=== PATIENT | female | born 1975 | race Caucasian/White ===

== ENCOUNTER 2021-11-26 11:11 | Day surgery (SDC) | payer BC, SELFPAY ==
[2021-11-26] VITALS (11 sets, daily range): BP systolic 121–149; BP diastolic 69–93; PULSE 70–112; RESP 16–22; TEMP 36.1–37.1; O2SAT 94–100; BMI 33.6
--- NOTE | 2021-11-26 11:30 | CT_ITS ---
WS: [id number] CT ABDOMEN AND PELVIS WITH CONTRAST HISTORY: RIGHT lower quadrant pain. TECHNIQUE: Imaging performed of the abdomen and pelvis with IV contrast. Single phase imaging of the abdomen. Coronal and sagittal reformats are submitted. All CT scans at [facility] use at [facility] one of these dose optimization techniques: automated exposure control; mA and/or kV adjustment per patient size (includes targeted exams where dose is matched to clinical indication); or iterative re construction. IV CONTRAST: Omnipaque 300; 95 mL IV. Oral contrast: No DLP: 1892.9 mGy.cm COMPARISON: None available. Lower thorax: Curvilinear atelectasis or scar posterior RIGHT lower lobe. Heart is normal size. Small hiatal hernia. Liver/biliary system: Normal size with no intrahepatic dilatation. Normal portal vein and SMV. Gallbladder: Mildly contracted gallbladder. No adjacent inflammation. Normal bile ducts. Pancreas: Normal size pancreas and pancreatic duct. No adjacent inflammation. Spleen: Normal size spleen. No mass or infarct. Adrenal glands: Normal. Right kidney: Normal. Left kidney: Normal. Aorta: Normal. Lymphadenopathy: There are a few small reactive lymph nodes in the RIGHT lower quadrant. Free fluid: None. GI tract: There is significant enlargement and enhancement of the appendix which measures 8.7 mm. The re is significant periappendiceal inflammation. There is a small amount of fluid just medial to the a bnormal appendix. The fluid collection measures 13 x 19 mm. Abdominal wall: Unremarkable abdominal wall. No hernia. Pelvis: No free fluid or adenopathy within the pelvis. Uterus midline and normal size. No adnexal mas s. Bones: Unremarkable. CT/CT abdomen pelvis w con* [id number] IMPRESSION: 1. Acute appendicitis and highly suspicious for rupture or developing adjacent abscess. Medial to the appendix is a 13 x 19 mm fluid collection. 2. No free fluid. Moderate amount of periappendiceal inflammation with a few s mall lymph nodes. Notified Magen Gomez MD at 11/26/2021 12:58 PM. Not available for consult.
--- NOTE | 2021-11-26 11:39 | W.ED.GENADLT ---
HPI - General Adult General: Chief complaint: Abdominal Pain Stated complaint: ABD Pain Time Seen by Provider: 11/26/21 11:29 History of Present Illness: Patient is a 46-year-old female with no significant past medical history presenting to the emergency room for evaluation of right lower quadrant abdominal pain since yesterday morning. Patient has associated nausea vomiting subjective fever and chills at home. Patient denies any urinary symptoms. No prior history of renal colic. No prior abdominal surgery including appendectomy. Patient has no other complaints of cough, runny nose, sore throat, chest pain, shortness of breath, for new vaginal discharge, or vaginal bleeding. She is currently sexually active with one partner. She denies any diarrhea, melena or hematochezia. Onset:2 days ago Duration:2 days Location:RLQ abd pain Severity: moderate Associated symptoms: Reports nausea and vomiting; Deny chest pain, dyspnea, rash or palpitations Review of Systems Const: Denies: fever(s) or chills Eyes: Denies: change in vision ENMT: Denies: mouth pain Card: Denies: chest pain or palpitations Resp: Denies: dyspnea or non-productive cough GI: Reports: abdominal pain (+RLQ abd pain), nausea and vomiting; Denies: diarrhea : Denies: dysuria Musc: Denies: extremity pain Skin/Breast: Denies: rash or new lesions Neuro: Denies: weakness in extremities Psych: Reports: other (Normal mood) Fab/Lymph: Denies: easy bruising PFSH ED PFSH: Medical History Depression Surgical History H/O ventral hernia repair Social History Smoking and tobacco status: never smoked Alcohol intake: never Substance/Drug Use: never Physical Exam Const: COMMON NORMALS: alert HENMT: COMMON NORMALS: atraumatic HEAD & SCALP: atraumatic MOUTH: moist mucous membranes not abnormal Eye: COMMON NORMALS: EOMs intact bilaterally and conjunctivae normal CONJUNCTIVA: Yes conjunctivae normal Neck/C-Spine: COMMON NORMALS: full ROM and supple Resp: COMMON NORMALS: normal respiratory effort and clear to auscultation bilaterally AUSCULTATION: clear to auscultation bilaterally Cardio: COMMON NORMALS: regular rate RATE: regular rate GI: COMMON NORMALS: Soft to palpation PALPATION: Yes Soft to palpation OTHER: + moderateRLQ focal TTP. NO guarding rebound, guarding, rigidity. No CVA tenderness to percussion. Neg Daly/Neg McBurney's point tenderness, no suprabupic tenderness to palpation. Extremity: COMMON NORMALS: full ROM Neuro: SENSORIUM/ORIENTATION: Yes alert MOTOR EXAM: No Abnormal motor strength present and Other motor observations present (no focal motor deficits) Psych: COMMON NORMALS: speech normal SPEECH: Yes normal speech MOOD & AFFECT: Yes euthymic mood Course Vital Signs: Vital signs: Vital Signs Temperature 98.3 F 11/26/21 11:25 Pulse Rate 94 11/26/21 13:17 Respiratory Rate 16 11/26/21 13:17 Blood Pressure 126/69 11/26/21 13:17 Pulse Oximetry 98 11/26/21 13:17 MDM - General Adult Medical Decision Making 46-year-old female presents emergency room with 2 days of right lower quadrant dull pain with nausea vomiting subjective fever chills. On arrival, patient is afebrile. Patient is focally tender in the right lower quadrant. No guarding no rebound tenderness. Work-up: CBC, CMP, lipase, beta hCG, UA, CT abdomen pelvis Intervention: IVF, morphine, Zofran Patient was found to have appendicitis on CT scan with abscess. Patient received cefazolin and Zosyn. Dr. Justin is aware patient. Pain is well controlled. Disposition: OR Lab Data : 11/26/21 12:58 11/26/21 12:58 Radiology Impressions Abdomen/Pelvis CT 11/26/21 11:30 IMPRESSION: 1. Acute appendicitis and highly suspicious for rupture or developing adjacent abscess. Medial to the appendix is a 13 x 19 mm fluid collection. 2. No free fluid. Moderate amount of periappendiceal inflammation with a few small lymph nodes. Notified Magen Gomez MD at 11/26/2021 12:58 PM. Not available for consult. Laboratory Results WBC 8.7 10^3/uL (4.0-10.0) 11/26/21 12:58 RBC 4.60 10^6/uL (4.1-5.3) 11/26/21 12:58 Hgb 13.3 g/dL (11.5-15.3) 11/26/21 12:58 Hct 40.6 % (37.0-47.0) 11/26/21 12:58 MCV 88.3 fl (81-99) 11/26/21 12:58 MCH 28.9 pg (28.0-34.0) 11/26/21 12:58 MCHC 32.8 g/dL (30.0-36.0) 11/26/21 12:58 RDW 12.9 % (12.1-15.1) 11/26/21 12:58 Plt Count 224 10^3/cmm (130-400) 11/26/21 12:58 MPV 9.8 fL (7.4-10.4) 11/26/21 12:58 Neut % (Auto) 75.7 % 11/26/21 12:58 Lymph % (Auto) 14.8 % 11/26/21 12:58 [place] % (Auto) 8.0 % 11/26/21 12:58 Eos % (Auto) 1.0 % 11/26/21 12:58 Baso % (Auto) 0.2 % 11/26/21 12:58 Neut # (Auto) 6.56 10^3/uL (1.8-7.7) 11/26/21 12:58 Lymph # (Auto) 1.3 10^3/uL (0.8-4.8) 11/26/21 12:58 [place] # (Auto) 0.7 10^3/uL (0.2-0.9) 11/26/21 12:58 Eos # (Auto) 0.1 10^3/uL (0.0-0.8) 11/26/21 12:58 Baso # (Auto) 0.0 10^3/uL (0.0-0.1) 11/26/21 12:58 Nucleated RBC % (auto) 0 % 11/26/21 12:58 Nucleated RBCs # 0.0 /100WBC 11/26/21 12:58 Sodium 137 mmol/L (136-145) 11/26/21 12:58 Potassium 3.7 mmol/L (3.5-5.1) 11/26/21 12:58 Chloride 102 mmol/L (98-107) 11/26/21 12:58 Carbon Dioxide 24 mmol/L (22-29) 11/26/21 12:58 Anion Gap 14.7 (5-19) 11/26/21 12:58 BUN 8 mg/dL (6-20) 11/26/21 12:58 Creatinine 0.6 mg/dL (0.5-0.9) 11/26/21 12:58 GFR Calculation 107.6 mL/min (90-130) 11/26/21 12:58 Glucose 104 mg/dL (65-115) 11/26/21 12:58 Calculated Osmolality 283 mOsm/kg (285-295) L 11/26/21 12:58 Calcium 8.5 mg/dL (8.5-10.5) 11/26/21 12:58 Total Bilirubin 0.9 mg/dL (0.15-1.2) 11/26/21 12:58 AST 10 U/L (0-32) 11/26/21 12:58 ALT 15 U/L (0-33) 11/26/21 12:58 Alkaline Phosphatase 79 IU/L (35-105) 11/26/21 12:58 Total Protein 6.6 g/dL (6.6-8.7) 11/26/21 12:58 Albumin 4.1 g/dL (3.5-5.2) 11/26/21 12:58 Globulin 2.5 g/dL (1.3-4.6) 11/26/21 12:58 Lipase 94 U/L (13-60) H 11/26/21 12:58 HCG, Qual Negative (Negative) 11/26/21 12:58 Urine Color Yellow (Yellow) 11/26/21 11:34 Urine Appearance Hazy (CLEAR) A 11/26/21 11:34 Urine pH 5 (5-7) 11/26/21 11:34 Ur Specific [place]ie 1.015 (1.005-1.030) 11/26/21 11:34 Urine Protein Neg (Negative) 11/26/21 11:34 Urine Glucose (UA) Norm (Normal) 11/26/21 11:34 Urine Ketones 1+ (Negative) H 11/26/21 11:34 Urine Blood 3+ (Negative) H 11/26/21 11:34 Urine Nitrate Negative (Negative) 11/26/21 11:34 Urine Bilirubin Neg (Negative) 11/26/21 11:34 Urine Urobilinogen 1 mg/dL (Negative) H 11/26/21 11:34 Ur Leukocyte Esterase Negative (Negative) 11/26/21 11:34 Urine RBC 0-4 /hpf (0-2) H 11/26/21 11:34 Urine WBC 5-10 /hpf (0-5) H 11/26/21 11:34 Ur Squamous Epith Cells 25-40 /hpf (0-5) H 11/26/21 11:34 Amorphous Sediment Not Reportable 11/26/21 11:34 Urine Bacteria 2+ /hpf (NONE) H 11/26/21 11:34 Imaging Data Other Imaging: Radiologist's impression: [facility] [address] [address] Scan Report Signed Patient: Annita Harris Unit #: [id number] : 1975 Age/Sex: 46 / F ADM Date: 11/26/21 Loc: ER Room/Bed: Attending Dr: Ordering Provider/Ordering MD: Magen Gomez MD Date of Service: 11/26/21 Procedure(s): CT abdomen pelvis w con* [id number] Accession Number(s): [id number] Report Number: [id number] WS: [id number] CT ABDOMEN AND PELVIS WITH CONTRAST HISTORY: RIGHT lower quadrant pain. TECHNIQUE: Imaging performed of the abdomen and pelvis with IV contrast.? Single phase imaging of the abdomen. Coronal and sagittal reformats are submitted.? [facility] use at least one of these dose optimization techniques: automated exposure control; mA and/or kV adjustment per patient size (includes targeted exams where dose is matched to clinical indication); or iterative reconstruction. IV CONTRAST: Omnipaque 300; 95 mL IV. Oral contrast: No DLP: 1892.9 mGy.cm COMPARISON: None available. Lower thorax: Curvilinear atelectasis or scar posterior RIGHT lower lobe. Heart is normal size. Small hiatal hernia. Liver/biliary system: Normal size with no intrahepatic dilatation. Normal portal vein and SMV. Gallbladder: Mildly contracted gallbladder. No adjacent inflammation. Normal bile ducts.? Pancreas: Normal size pancreas and pancreatic duct. No adjacent inflammation. Spleen: Normal size spleen. No mass or infarct. Adrenal glands: Normal. Right kidney: Normal. Left kidney: Normal. Aorta: Normal. Lymphadenopathy: There are a few small reactive lymph nodes in the RIGHT lower quadrant. Free fluid: None. GI tract: There is significant enlargement and enhancement of the appendix which measures 8.7 mm. There is significant periappendiceal inflammation. There is a small amount of fluid just medial to the abnormal appendix. The fluid collection measures 13 x 19 mm. Abdominal wall: Unremarkable abdominal wall. No hernia. Pelvis: No free fluid or adenopathy within the pelvis. Uterus midline and normal size. No adnexal mass. Bones: Unremarkable. CT/CT abdomen pelvis w con* [id number] IMPRESSION: ? 1.? Acute appendicitis and highly suspicious for rupture or developing adjacent abscess. Medial to the appendix is a 13 x 19 mm fluid collection. 2.? No free fluid. Moderate amount of periappendiceal inflammation with a few small lymph nodes. ? ? Notified Magen Gomez MD at 11/26/2021 12:58 PM. Not available for consult. ? Dictated By: Celi Carbajal DO Signed By: Celi Carbajal DO Signed Date/Time: 11/26/21 1300 DD/ 1232 Discharge Plan Discharge Patient Disposition: Admitted As Inpatient Clinical Impression: Abdominal pain, Nausea & vomiting, Acute appendicitis Condition: Stable Coding Level of Care Code ED Communications Professional for Chg Fwd Exam Comprehensive
[2021-11-26] MEDS: sodium chloride 0.9% 1,000 ML 999 ML IV (12:03)
[2021-11-26] MEDS: morphine 4 mg/mL SDV 1 mL IVP (12:03)
[2021-11-26] MEDS: ondansetron 2 mg/ML SDV 2 mL 4 MG IVP (12:03)
[2021-11-26 12:55] LABS: Glucose Urine UA Norm (Normal); Ketones Urine 1+ (Negative); Protein Urine Neg (Negative); Specific Gravity, Urine 1.015 (1.005-1.030); Urine Appearance Hazy (CLEAR); Urine Color Yellow (Yellow); pH Urine 5 (5-7)
[2021-11-26 12:56] LABS: Add Urine Culture? No; Add Urine Microscopic? YES; Bacteria Urine 2+ /hpf; Bilirubin Urine Neg (Negative); Blood Urine 3+ (Negative); Leukocyte Esterase Urine Negative (Negative); Nitrate Urine Negative (Negative); RBC Urine 0-4 /hpf (0-2); Squamous Epithelial Cell Urine 25-40 /hpf (0-5); Urobilinogen Urine 1 mg/dL (Negative)
[2021-11-26 13:14] LABS: Basophils % 0.2 %; Eosinophils # 0.1 10^3/uL (0.0-0.8); Hematocrit 40.6 % (37.0-47.0); Hemoglobin 13.3 g/dL (11.5-15.3); Lymphocytes # 1.3 10^3/uL (0.8-4.8); Lymphocytes % 14.8 %; Mean Corpuscular HGB Conc 32.8 g/dL (30.0-36.0); Mean Corpuscular Hemoglobin 28.9 pg (28.0-34.0); Mean Corpuscular Volume 88.3 fl (81-99); Mean Platelet Volume 9.8 fL (7.4-10.4); Monocytes # 0.7 10^3/uL (0.2-0.9); Neutrophils # 6.56 10^3/uL (1.8-7.7); Neutrophils % 75.7 %; Nucleated Red Blood Cells % 0 %; Platelet Count 224 10^3/cmm (130-400); Red Cell Distribution Width 12.9 % (12.1-15.1); White Blood Count 8.7 10^3/uL (4.0-10.0)
--- NOTE | 2021-11-26 13:38 | P.HP_ITS ---
Providers/Chief Complaint Chief Complaint: ABD Pain History of Present Illness Annita Harris is a 46 year old female who states that she started having lower abdominal pain yesterday morning associate with fevers, chills, nausea and vomiting. Her symptoms persisted overnight and therefore she presented to the ER for further evaluation. At present she mainly complains of right lower q uadrant pain Medications/Allergies Home Medications Medication Instructions Recorded Confirmed Last Taken Type venlafaxine 37.5 mg 37.5 mg PO DAILY 11/26/21 11/26/21 Unknown History capsule,extended release 24 hr Allergies Allergy/AdvReac Type Severity Reaction Status Date / Time No Known Allergies Allergy Verified 11/26/21 12:50 PFSH Acute PFSH: Medical History Depression Surgical History H/O ventral hernia repair Social History Smoking and tobacco status: never smoked Alcohol intake: never Substance/Drug Use: never Vitals/I&O/Wt Last Vital Signs Temp 98.3 F 11/26/21 11:25 Pulse 94 11/26/21 13:17 Resp 16 11/26/21 13:17 BP 126/69 11/26/21 13:17 Pulse Ox 98 11/26/21 13:17 Weight last 48 hrs Weight 215 lb Physical Exam Narrative: HEENT: Normocephalic Eye: Sclera /conjunctiva normal Respiratory and chest: Bilateral clear breath sounds on auscultation Cardiovascular: Normal S1 and S2 heart sounds Abdomen: Soft to palpation, tender right lower quadrant, no guarding or rigidity Neurological: Oriented to place person and time Skin: Intact, no lesions appreciated on gross exam Data : 11/26/21 12:58 11/26/21 12:58 A&P Assessment and plan (1) Acute appendicitis: 46-year-old female who presents with abdominal pain, nausea and vomiting since yesterday morning. Her WBC is 8.7. CT scan showed acute appendicitis with a 1.3 cm adjacent abscess. Plan for laparoscopic possible open appendectomy Procedure, risks, benefits and alternatives have been discussed with the patient who wishes to proceed with surgery. Status: Acute Attestations Medical Necessity Statement*: Acute appendicitis Coding Level of Care Code Acute Tool Smith for [facility] Fwd Diagnoses Acute appendicitis K35.80
--- NOTE | 2021-11-26 13:43 | ANES.PREANE2 ---
Pre-Anesthetic Assessment Height/Weight: Height 1.7 m Weight 97.522 kg Temp Pulse Resp BP Pulse Ox 98.3 F 94 16 126/69 98 11/26/21 11:25 11/26/21 13:17 11/26/21 13:17 11/26/21 13:17 11/26/21 13:17 Preop Diagnosis: Acute appendicitis Operation Date: 11/26/21 14:55 Proposed Procedures p Laparoscopic Appendectomy(Not Applicable) - Jose Justin MD Familial anesthetic complications: None Was Beta Meredith taken within 24 hours: N/A Last intake: Food 10/29/2021 @ 0730 Drink of water at 1130 on 10/29/2021 Social No alcohol and No tobacco Exam alert, oriented x 3, clear to auscultation bilaterally and regular rate & rhythm Airway Submandibular: within normal limits Cervical ROM: within normal limits Mallampati: Class I Dentition: full History/ROS No significant complaints Pulmonary None reported CV/HEM None reported None reported Hepatic None reported GI None reported Metabolic None reported Musc/skel None reported Neuropsych Neuropathy Reports paresthesia of forearms and wrist Anesthetic Plan ASA status: 2 Anesthesia: Anesthesia Evaluation and General Other: We discussed risk and benefits of general anesthesia including PONV, sore throat (sometimes severe), corneal abrasion, positioning and peripheral nerve injuries, life threatening allergic reaction, post operative ICU admission requiring prolonged intubation, stroke, heart attack, , and rare incidences of recall. Patient consents to proceed with general anesthesia. Risk of > 500 ml blood loss (7ml/kg in children): No Medications/Allergies Home Medications Medication Instructions Recorded Confirmed Last Taken Type venlafaxine 37.5 mg 37.5 mg PO DAILY 11/26/21 11/26/21 Unknown History capsule,extended release 24 hr Allergies Allergy/AdvReac Type Severity Reaction Status Date / Time No Known Allergies Allergy Verified 11/26/21 13:55 [facility] Anesthesia Medical History (Updated 11/26/21 @ 13:49 by Jose Justin MD) Depression Surgical History (Updated 11/26/21 @ 13:49 by Jose Justin MD) H/O ventral hernia repair Social History (Updated 11/26/21 @ 11:41 by Magen Gomez MD) Smoking and tobacco status: never smoked Alcohol intake: never Substance/Drug Use: never Data Anesthesia : 11/26/21 12:58 11/26/21 12:58 Short CBC 11/26/21 Range/Units 12:58 WBC 8.7 (4.0-10.0) 10^3/uL Hgb 13.3 (11.5-15.3) g/dL Hct 40.6 (37.0-47.0) % MCV 88.3 (81-99) fl Plt Count 224 (130-400) 10^3/cmm Neut % (Auto) 75.7 % Neut # (Auto) 6.56 (1.8-7.7) 10^3/uL Urine 11/26/21 Range/Units 11:34 Urine Color Yellow (Yellow) Urine Appearance Hazy A (CLEAR) Urine pH 5 (5-7) Ur Specific [place] 1.015 (1.005-1.030) Urine Protein Neg (Negative) Urine Glucose (UA) Norm (Normal) Urine Ketones 1+ H (Negative) Urine Nitrate Negative (Negative) Urine Bilirubin Neg (Negative) Ur Leukocyte Esterase Negative (Negative) Urine RBC 0-4 H (0-2) /hpf Urine WBC 5-10 H (0-5) /hpf Cardiac Studies: No Data to Display
[2021-11-26 13:48] LABS: Alanine Aminotransferase 15 U/L (0-33); Albumin Level 4.1 g/dL (3.5-5.2); Alkaline Phosphatase 79 IU/L (35-105); Anion Gap 14.7 (5-19); Aspartate Amino Transferase 10 U/L (0-32); Blood Urea Nitrogen 8 mg/dL (6-20); Calcium 8.5 mg/dL (8.5-10.5); Carbon Dioxide 24 mmol/L (22-29); Chloride 102 mmol/L (98-107); Globulin 2.5 g/dL (1.3-4.6); Glomerular Filtration Rate 107.6 mL/min (90-130); Glucose 104 mg/dL (65-115); Lipase 94 U/L (13-60); Osmolality Calculated 283 mOsm/kg (285-295); Potassium 3.7 mmol/L (3.5-5.1); Sodium 137 mmol/L (136-145); Total Bilirubin 0.9 mg/dL (0.15-1.2); Total Protein 6.6 g/dL (6.6-8.7)
[2021-11-26 14:11] LABS: HCG, Serum Qual Negative (Negative)
[2021-11-26] MEDS: sodium chloride 0.9% 1,000 ML 30 ML IV (14:18)
[2021-11-26] MEDS: metroNIDAZOLE IV 500 MG/100 ML PREMIX 100 MG IV (15:22)
--- NOTE | 2021-11-26 16:04 | P.OP_ITS ---
Operative Report Date of procedure: November 26, 2021 Pre-op diagnosis: Acute appendicitis with small intra abdominal abscess Post-op findings: Acute appendicitis with small intra abdominal abscess Procedure done: 1. Laparoscopic cholecystectomy 2. Drainage of intra abdominal abscess Specimens removed/disposition: appendix Surgeon: Jose Justin Anesthesia: General Condition: stable Disposition: PACU Procedure: The patient was taken to the Operating Room and intubated under general anesthesia after antibiotic had been administered. Using a 15 blade, a 1-cm i nfraumbilical incision was made and using open Mary technique, the peritoneal cavity was entered. A 12mm port with balloon was placed and 14 mm of pneumoperitoneum was created and 10-mm 30 degree scope was introduced. Two separate 5mm ports were placed in the left lower quadrant and suprapubic area under direct visualization. The appendix was noted in the right lower quadrant and appeared acutely inflamed with omentum adherent to it. Using [place] forceps, an opening was made in the mesoappendix near the base of the appendix. An Endo KOLTON stapler 45mm long 3.5mm blue load was introduced to divide the appendix at it's base. The body of the appendix had to be dissected free from the cecum and adjacent ileum due to significant inflammation resulting in drainage of the abscess cavity where danitza pus was aspirated.Using electrocautery, the mesoappendix including the appendicular artery was divided. There was no bleeding noted and the staple line appeared intact. Since the abscess was small, I did not leave a drain in. The right lower quadrant was irrigated with saline and an EndoCatch bag was introduced to remove the appendix. All three ports were removed under direct visualization and there was no bleeding noted on the port sites. 10cc of 0.5% Marcaine was infiltrated at the port sites. The fascia at the umbilical port was closed using figure of eight 0-Vicryl sutures and subcutaneous tissue was approximated using 3-0 Vicryl and skin at all 3 port sites was closed using 4-0 Monocryl and Dermabond. The patient was extubated and transferred to recovery room in stable condition.
--- NOTE | 2021-11-26 16:56 | ANE.PACU2 ---
Inpatient post-anesthesia follow up: Airway intact: Yes Vital signs: Temperature 97.7 F Pulse Rate 70 Respiratory Rate 18 Blood Pressure 123/73 Pulse Oximetry 97 Oxygen Delivery Me thod Room Air Oxygen Flow Rate 6 Fraction of Inspir ed Oxygen Hydration adequate: Yes Nausea and vomiting: No Pain level: 1 Mental status: Baseline
[2021-11-26] MEDS: HYDROcodone-acetaminophen 5-325 mg Tablet 1 TAB PO (17:24)
== END 2021-11-26 18:38 | disposition home or self-care (01) ==
LOC: ER 13:24 → OPS 13:33
PROVIDERS: Emergency Provider Emergency Medicine; Visit Provider Surgery
PROC: 0DTJ4ZZ Resection of Appendix, Percutaneous Endoscopic Approach (ICD-10-PCS; CPT 44970; principal; 2021-11-26 14:55)
DX: K35.80 Unspecified acute appendicitis (principal)
CPT/HCPCS: 44970; 36415; 74177; 80053; 81001; 83690; 84703; 85025; 88304; J1100; J1885; J2250; J2270; J2405; J2704; J3010; J3490; J7030; Q9967; S0030

== ENCOUNTER 2024-12-21 08:57 | Outpatient (CLI) | payer BC, SELFPAY ==
--- NOTE | 2024-12-21 09:00 | MM_ITS ---
WS: [id number] BILATERAL SCREENING DIGITAL TOMOSYNTHESIS MAMMOGRAM WITH CAD HISTORY: Z12.39 - Encounter for other screening for malignant neop... COMPARISON: None available. Bilateral CC and MLO views with tomosynthesis and synthetic mammography submitted. Computer aided detection analyzed. Breast composition: The breasts are almost entirely fatty. No suspicious masses, microcalcifications or architectural distortion. MM/MM scr BI tomosynthesis [id number] IMPRESSION: BI-RADS: 1 - Negative. FOLLOW UP: 1 Year Follow-up
== END 2024-12-21 08:58 | disposition home or self-care (01) ==
LOC: MOBLMAM 09:01
PROVIDERS: PCP Nurse Practitioner; Visit Provider Nurse Practitioner
DX: Z12.31 Encounter for screening mammogram for malignant neoplasm of breast (principal); R92.313 Mammographic fatty tissue density, bilateral breasts
CPT/HCPCS: 77063; 77067